=== PATIENT | female | born 1970 | race Caucasian/White ===

== ENCOUNTER 2016-08-05 03:28 | Inpatient (IN) | payer OTHER ==
--- NOTE | ~2016-08-05 | EKG ---
PATIENT: KALEB MIRANDA UNIT #: [id number] Ventricular Rate: 82 BPM Atrial Rate: 82 BPM P-R Interval: 142 ms QRS Duration: 86 ms Q-T Interval: 386 ms QTC Calculation(Bezet): 450 ms P [place]: 45 degrees Calculated R [place]: 9 degrees Calculated T [place]: 123 degrees Diagnosis Line: Normal sinus rhythm Diagnosis Line: Biatrial enlargement Diagnosis Line: T wave abnormality, consider lateral ischemia Diagnosis Line: Abnormal ECG Diagnosis Line: When compared with ECG of 05-AUG-2016 03:07, Diagnosis Line: Vent. rate has decreased BY 43 BPM Diagnosis Line: Confirmed by SID SCHULTZ MD ([id number]) on 08/15/2016 Diagnosis Line: 10:19:57 PM INTERPRETING MD: ANTOINE OLMEDO
--- NOTE | ~2016-08-05 | DS ---
Unit #: [id number] #: [id number] Patient: TRINITY MIRANDA [id number] [address] [address] [id number] I MR#: [id number] NAME: TRINITY MIRANDA ROOM: 548 Age: 46 Sex: F Admission Date: 08/05/2016 : 1970 Discharge Date: 08/09/2016 Attending Physician: Rhona Juarez M.D. Primary Care Physician: Tommie Nova M.D. DISCHARGE SUMMARY FINAL DIAGNOSES 1. Acute respiratory failure. 2. Acute systolic congestive heart failure with left ventricular ejection fraction of 20% to 25%. 3. Pneumonia. 4. Coronary artery disease with history of coronary artery bypass graft. 5. Lymphoma. 6. Nonsustained ventricular tachycardia. 7. Sinus bradycardia. 8. Hypotension. 9. Chronic obstructive pulmonary disease. 10. Anxiety disorder. 11. Nicotine abuse. 12. History of degenerative disk disease. 13. Obesity. CONSULTATIONS DONE DURING HOSPITALIZATION 1. Dr. Frost from cardiology service. 2. Dr. Seun Rooney from psychiatry service. 3. Dr. Bhatti from pulmonary service. DISCHARGE MEDICATIONS 1. Tylenol 650 mg q.6 p.r.n. 2. Lovenox 40 mg subcu q.24 hours. 3. Neurontin 300 mg t.i.d. 4. Seroquel 200 mg at bedtime. 5. Vistaril 50 mg t.i.d. 6. Xanax 0.75 mg t.i.d. p.r.n. 7. Lipitor 40 mg at bedtime. 8. Aspirin 81 mg q.24. 9. Protonix 40 mg daily. 10. Potassium 20 mEq b.i.d. 11. Dopamine drip as per cardiology. 12. Please note the patient is not on NEVAEH inhibitor/ARB for cardiomyopathy because of hypotension. 13. No beta-sofi because of hypotension and bradycardia. HOSPITAL COURSE Ms. Trinity Miranda is a 46-year-old female with multiple medical problems. Was admitted to the hospital with shortness of breath, which had been increasing for a few days prior to coming to the hospital. The patient does have history of severe anxiety and depression since she lost her son to drugs in 2014. The patient was admitted to telemetry unit at [facility], was diagnosed with pneumonia, panic attacks and Unit #: [id number] #: [id number] Patient: TRINITY MIRANDA heart failure. Dr. Bhatti was consulted. The patient was started on IV antibiotic as per his recommendation. CTA of the chest was done on 08/05/2016, which showed no aortic aneurysm. Suboptimal opacification of the aorta. No pulmonary embolism. Interval progression of probable atelectasis and scarring with increasing volume loss in the right lung. Subtle mild tree-in-bud opacities in the right lower lobe. Additional noncalcified nodular densities. A followup CT scan in 3-4 months for reassessment has been recommended. Dr. Bhatti has discontinued the antibiotic at this time. Acute on chronic congestive heart failure with a low ejection fraction. Dr. Frost was consulted. She was started on a dopamine drip for hypotension, bradycardia and congestive heart failure. The patient has nonsustained ventricular tachycardia and sinus bradycardia. The patient is being transferred to [facility] for AICD/pacemaker placement. I have discussed with Dr. Frost about the plan of care. As per Dr. Bhatti, there is no evidence of any active infection. DISCHARGE PHYSICAL EXAMINATION VITAL SIGNS ON DISCHARGE: Blood pressure is 108/72, respiratory rate 19, pulse 81, temperature 97.8. RESPIRATORY: Chest has decreased air entry in the bases; otherwise, normal. CVS: S1, S2 positive. Regular rhythm. ABDOMEN: Bowel sounds are positive. DISCHARGE INSTRUCTIONS 1. The patient is being discharged to [facility] as per Dr. Frost's recommendation. 2. The patient will be NPO after breakfast. 3. Medications as per med/rec. Dictated by... Yuridia Moore TD: 08/09/2016 09:16 JOB #: [id number] DISCHARGE SUMMARY Page 1 of 1 X Rhona Juarez MD DISCHARGE SUMMARY
--- NOTE | ~2016-08-05 | CT16 ---
[facility] A Service of [facility] RADIOLOGY TEXT RESULTS PATIENT: KALEB MIRANDA LOCATION: [facility] 548-01 : [birth year] UNIT #: [id number] AGE: [address]: Ashwin Rai MD SEX: F ORDER DR: [id number] [facility] [address] [place], [place] [address] [id number] I MR#: [id number] Acc #: [id number] NAME: KALEB MIRANDA : 1970 SEX: F STUDY DATE/TIME: 08/05/2016 4:54 UNIT: CEDOF ROOM: [id number] STUDY DESCRIPTION: CT Angio Chest for PE Attending Physician: Ashwin Rai M.D. Ordering Physician: Villa Casas M.D. Primary Care Physician: Tommie Nova M.D. MEDICAL IMAGING REPORT This report is preliminary unless electronic signature is present EXAM Chest CT, PE protocol with contrast, 08/05/2016 INDICATIONS Short of air chest pain symptoms of present today and have been present for a few days. History of lymphoma. TECHNIQUE This CT exam was performed with one or more of the following radiation dose reduction techniques: automatic exposure control, adjustment of mA and/or kV according to patient size, and iterative reconstruction. Contrast enhanced CT scan of the chest PE protocol was performed with 3-D reformats. COMPARISON 01/17/2014 FINDINGS IV bolus adequate. There is no evidence of acute pulmonary embolus in the central pulmonary arterial tree. Aorta demonstrates no aneurysm. The heart is enlarged. No pericardial effusion. Visualized thyroid unremarkable. No pericardial effusion or axillary adenopathy. No mediastinal adenopathy. Included upper abdomen demonstrates surgical absence of the gallbladder and probable physiologic dilatation of the extrahepatic common bile duct. Lungs demonstrate no effusion on the left. Left lung otherwise essentially clear with only minimal atelectasis or scarring. On the right, there is volume loss and peripheral pleural thickening involving the lower lobe and middle lobe on the right and to a lesser extent the [facility] A Service of [facility] RADIOLOGY TEXT RESULTS PATIENT: KALEB MIRANDA LOCATION: [facility] 548-01 : [birth year] UNIT #: [id number] AGE: [address]: Ashwin Rai MD SEX: F ORDER DR: upper lobe. There is minimal tree-in-bud infiltrate in the right lower lobe most characteristic of inflammatory or infectious process. These all measure on the order of 4-5 mm or less. Suggest imaging followup in 3-4 months for reassessment of decreased in size or resolution after appropriate therapy as these nodules are favored to be inflammatory or infection. Worsening volume loss in the right middle lobe. There is no suspicious bone lesion. IMPRESSION 1. No aortic aneurysm. Suboptimal opacification of the aorta for assessment of the presence or absence of dissection. 2. No PE 3. Interval progression of probable atelectasis and scarring with increasing volume loss in the right lung. 4. Subtle mild tree-in-bud opacities in the right lower lobe. Additional noncalcified nodular densities in the right lower lobe also favored to be inflammatory or infectious. Suggest follow up CT in 3-4 months for reassessment of potential decrease in size or resolution over time. 5. No significant pleural effusion. 6. Cardiomegaly. 7. Upper abdomen demonstrates no acute finding. The gallbladder is surgically absent. Dictated by... Aleksander Mccloud M.D. THIS IS AN ELECTRONICALLY VERIFIED REPORT Aleksander Mccloud M.D. at 08/05/2016 10:13 PM Isiah TD: 08/05/2016 15:30 JOB #: [id number] MEDICAL IMAGING REPORT Page 1 of 1 COPY
--- NOTE | ~2016-08-05 | CO ---
Unit #: [id number] #: [id number] Patient: TRINITY MIRANDA [id number] [facility] [address] [facility]. [place], [place] [address] [id number] I MR#: [id number] NAME: TRINITY MIRANDA ROOM: 548 Age: 46 Sex: F Admission Date: 08/05/2016 : 1970 Attending Physician: Rhona Juarez M.D. Primary Care Physician: Tommie Nova M.D. Consultation Date: 08/07/2016 CONSULTATION REPORT DISCUSSION Ms. Trinity Miranda is a 46-year-old female seen in room 548, bed 1 on August 07, 2016 at [facility]. Patient reported medication is helping her, decreasing anxiety. The patient reports some (1) slow down. Patient was sitting comfortably, dressed in hospital attire and eating breakfast. The patient denied any side effect from medication. Denied any suicidal or homicidal ideation. Patient reports getting better. Mood less irritable. No agitation. Complete review of systems is unremarkable. MENTAL STATUS EXAMINATION General appearance: The patient is dressed casually in hospital attire. Attention span and concentration fair. Speech: Regular rate, coherent. Oriented in time, place, and person. Mood and affect was sad, dysphoric, anxious. Thought process coherent. Thought content: The patient denied any thoughts of harming self or others. Recent and remote memory fair. Language: Able to name objects, repeat phrases. Fund of knowledge fair. Insight and judgment is fair to slightly impaired. DIAGNOSES PSYCHIATRIC: Bipolar mood disorder, not otherwise specified, F31.89. Cannabis abuse, moderate, F12.20. Amphetamine use disorder, severe, F15.20. ASSESSMENT AND PLAN 1. Supportive psychotherapy and psychoeducation provided to patient. 2. Educated about benefits and side effects of medication and course and prognosis of illness. 3. Advised to continue with current combination of medication and we will continue to monitor. If needed, consider further adjustment of medications. Dictated by... Seun Rooney M.D. Salazar TD: 08/08/2016 17:26 JOB #: [id number] Unit #: [id number] #: [id number] Patient: TRINITY MIRANDA CONSULTATION REPORT Page 1 of 1 X Seun Rooney MD CONSULTATION REPORT
--- NOTE | ~2016-08-05 | CR72 ---
[facility] A Service of [facility] RADIOLOGY TEXT RESULTS PATIENT: KALEB MIRANDA LOCATION: [facility] : [birth year] UNIT #: [id number] AGE: [address]: Ashwin Rai MD SEX: F ORDER DR: [id number] [facility] [address] [facility]. [place], [place] [address] [id number] I MR#: [id number] #: [id number] NAME: KALEB MIRANDA : 1970 SEX: F STUDY DATE/TIME: 08/05/2016 3:11 UNIT: CEDOF ROOM: 97215 STUDY DESCRIPTION: CR Chest Single View Portable Attending Physician: Ashwin Rai M.D. Ordering Physician: Villa Casas M.D. Primary Care Physician: Tommie Nova M.D. MEDICAL IMAGING REPORT This report is preliminary unless electronic signature is present EXAM Frontal chest, 07/26/2016. INDICATION Shortness of air and cough in a 46-year-old female with worsening symptoms for a month. Congestive heart failure, anxiety. History of lymphoma. TECHNIQUE Frontal chest compared with 01/23/2014. FINDINGS Heart is enlarged but stable status post median sternotomy. MediPort catheter or other large-bore central line from a left sided approach terminates at the cavoatrial junction. There is mild vascular congestion. Probable chronic pleural thickening on the right with increasing atelectasis or faint infiltrate with associated scarring in the mid and lower lung zone on the right. No new consolidation on the left. No pneumothorax. IMPRESSION 1. Cardiomegaly and mild volume overload with interstitial edema. 2. Chronic-appearing pleural thickening on the right with some increasing atelectasis or faint infiltrate associated with the area of pleural thickening. This could also represent interval progression of scarring. Correlate clinically with imaging followup to resolution after appropriate therapy. Dictated by... Aleksander Mccloud M.D. THIS IS AN ELECTRONICALLY VERIFIED REPORT [facility] A Service of [facility] RADIOLOGY TEXT RESULTS PATIENT: KALEB MIRANDA LOCATION: [facility] 548-01 : [birth year] UNIT #: [id number] AGE: [address]: Ashwin Rai MD SEX: F ORDER DR: Aleksander Mccloud M.D. at 08/05/2016 10:12 PM DARLINE/vivian TD: 08/05/2016 15:03 JOB #: [id number] MEDICAL IMAGING REPORT Page 1 of 1 COPY
--- NOTE | ~2016-08-05 | CO ---
Unit #: [id number] #: [id number] Patient: TRINITY MIRANDA [id number] [facility] [address]. [place], [place] [address] [id number] I MR#: [id number] NAME: TRINITY MIRANDA ROOM: 548 Age: 46 Sex: F Admission Date: 08/05/2016 : 1970 Attending Physician: Rhona Juarez M.D. Primary Care Physician: Tommie Nova M.D. Consultation Date: 08/09/2016 CONSULTATION REPORT REASON FOR CONSULTATION Followup. DISCUSSION Ms. Trinity Miranda is a 46-year-old female, seen on 07/20/2016 in room 548, bed 1, at [facility]. The patient reported that anxiety and depression is better, decrease in anxiety. Sleeping good. Tolerating medication fairly well. The patient denied any aggression, agitation, or any suicidal or homicidal ideation. REVIEW OF SYSTEMS Complete review of systems unremarkable. MENTAL STATUS EXAMINATION General; the patient is moderately obese, dressed casually, lying comfortably in bed. Attention span and concentration, fair. Speech, regular rate and coherent, but slow in volume and rate. Oriented in time, place, and person. Mood and affect were sad and dysphoric. Thought process was coherent, goal directed. Thought content, the patient denied any thoughts of harming self or others or any psychotic symptom. Recent and remote memory, poor. Language, able to name object and repeat phrases. Fund of knowledge, fair. Insight and judgment, fair to slightly impaired. DIAGNOSES Psychiatric: 1. Bipolar mood disorder, not otherwise specified, F31.89. 2. Cannabis abuse, moderate, F12.20. 3. Amphetamine use disorder, moderate, F15.20. ASSESSMENT/PLAN 1. Supportive psychotherapy and psychoeducation provided to the patient. 2. Educated about benefits and side effects of medication and course and prognosis of illness. 3. Advised to continue with current medication. If needed, consider further adjustment of medication. We will continue to follow. Please feel free to call if any questions, telephone #[phone]. Dictated by... Seun Rooney M.D. LATISHA/melissa Unit #: [id number] #: [id number] Patient: TRINITY MIRANDA TD: 08/11/2016 00:01 JOB #: [id number] CONSULTATION REPORT Page 1 of 1 X Seun Rooney MD CONSULTATION REPORT
--- NOTE | ~2016-08-05 | CO ---
Unit #: [id number] #: [id number] Patient: TRINITY MIRANDA [id number] [facility] [address] [facility]. [place], [place] [address] [id number] I MR#: [id number] NAME: TRINITY MIRANDA ROOM: 548 Age: 46 Sex: F Admission Date: 08/05/2016 : 1970 Attending Physician: Rhona Juarez M.D. Primary Care Physician: Tommie Nova M.D. Consultation Date: 08/06/2016 CONSULTATION REPORT REASON FOR CONSULTATION Severe anxiety, depression, panic attack. HISTORY OF PRESENT ILLNESS Ms. Trinity Miranda is a 46-year-old female, seen on 08/06/2016 in room 548 at [facility]. The patient has a history of bipolar disorder and anxiety disorder. The patient was last admitted at [facility] in 2012. The patient's urine drug screen was positive for benzodiazepine, amphetamine, and marijuana. The patient, however, denied any use of drugs or alcohol. The patient is currently reporting having severe anxiety, restlessness, agitation, mood lability, irritability. The patient currently denied any suicidal or homicidal ideation. Denied any psychotic symptom, but somewhat paranoid. PAST PSYCHIATRIC HISTORY Remarkable for history of previous admission at [facility] in 2012, currently receiving treatment from Dr. Iverson's office by a psychiatrist. The patient reports that her medication was recently increased, but she is not doing well. MEDICAL HISTORY Remarkable for history of lymphoma, depression, anxiety, degenerative disk disease, osteoarthritis, and obesity. MEDICATION HISTORY The patient is on Seroquel 400 mg daily, Xanax 2 mg b.i.d., Lortab. ALLERGIES No known drug allergies. FAMILY HISTORY AND SOCIAL HISTORY The patient has good support system. Lives with her spouse. Denied any use of drugs or alcohol, but the patient's urine drug screen was positive for amphetamine, benzos, and marijuana. REVIEW OF SYSTEMS Complete review of systems is remarkable for severe anxiety, restlessness. MENTAL STATUS EXAMINATION General appearance, the patient dressed casually in hospital attire, sitting comfortably in a propped up position, receiving oxygen through nasal cannula. Attention span and concentration, fair. Speech, rapid in rate and pressured. Oriented in time, place, and person. Mood and affect were labile, anxious, nervous. Thought process, coherent. Thought Unit #: [id number] #: [id number] Patient: TRINITY MIRANDA content, the patient denied any thoughts of harming self or others, but guarded. Recent and remote memory, fair. Language; able to name object, repeat phrases. Fund of knowledge, fair. Insight and judgment, fair to slightly impaired. DIAGNOSES Psychiatric: 1. Bipolar mood disorder, not otherwise specified, F31.89. 2. Cannabis abuse, moderate, F12.20. 3. Amphetamine use disorder, severe, F15.20. Secondary diagnosis: Deferred. Medical diagnosis: Please refer to H and P. Stressors: Psychosocial stressors. ASSESSMENT/PLAN 1. Supportive psychotherapy and psychoeducation provided to the patient. 2. Educated about benefits and side effects of medication and course and prognosis of illness. 3. Advised to discontinue Wellbutrin and Xanax, and recommending to lower the dosage of Seroquel to 200 mg at bedtime. Advised Neurontin 300 mg t.i.d. to control severe anxiety and Vistaril 50 mg t.i.d. one dose now. We will continue to follow. Please feel free to call if any questions, telephone #[phone]. Dictated by... Yuridia Olguin/melissa TD: 08/07/2016 08:18 JOB #: [id number] CONSULTATION REPORT Page 1 of 1 X Seun Rooney MD X CONSULTATION REPORT
--- NOTE | ~2016-08-05 | HP ---
Unit #: [id number] #: [id number] Patient: TRINITY MIRANDA [id number] [address] [address] [id number] I MR#: [id number] NAME: TRINITY MIRANDA ROOM: 548 Age: 46 Sex: F Admission Date: 08/05/2016 : 1970 Attending Physician: Rhona Juarez M.D. Primary Care Physician: Tommie Nova M.D. HISTORY AND PHYSICAL ADMISSION DIAGNOSES 1. Pneumonia. 2. Anxiety/depression. 3. History of coronary artery disease. 4. History of valvular heart disease. 5. Acute on chronic systolic heart failure. 6. Obesity, questionable obstructive sleep apnea. 7. History of lymphoma. 8. Continues tobacco use. 9. Questionable chronic obstructive pulmonary disease. HISTORY OF PRESENT ILLNESS Ms. Trinity Miranda is a 46-year-old, obese, female, patient of Dr. Nova, who comes to the emergency room with the complaints of increasing shortness of air and dyspnea along with some panic-type attacks which mostly happens at night. She states that she has got severe anxiety/depression since she lost her son to drugs in 2014. She gets really tearful easily. Complains of shortness of air, dyspnea with some nonproductive cough. She has some subjective fevers with some diaphoresis. Denies any chest pain, denies any headache/dizziness, denies any nausea, vomiting, diarrhea or abdominal pain. REVIEW OF SYSTEMS Twelve point review of systems is essentially basically negative except as above. PAST MEDICAL HISTORY Significant for: 1. History of coronary artery disease. 2. Hypertension. 3. Valvular heart disease. 4. Systolic heart failure. 5. Obesity. 6. Lymphoma, in remission now. 7. Degenerative disc disease. 8. Depression/anxiety/panic attacks. PAST SURGICAL HISTORY 1. Significant for CABG. 2. Significant PCI with stents. 3. Also significant for video-assisted thoracotomy on the right with biopsy. 4. Also significant for cholecystectomy. 5. Tubal ligation. Unit #: [id number] #: [id number] Patient: TRINITY MIRANDA 6. Bilateral hip replacement. 7. Port insertion for the chemotherapy. HOME MEDICATIONS Include: 1. Seroquel. 2. Wellbutrin. 3. Xanax. ALLERGIES No known drug allergies. SOCIAL HISTORY Continues to smoke. Denies any alcohol or illicit drug use. FAMILY HISTORY Unremarkable. PHYSICAL EXAMINATION GENERAL: The patient is a 46-year-old, obese female, in no acute distress. VITAL SIGNS: Blood pressure 109/65, heart rate 89, respirations 18, temperature 98.3. HEENT: Head is atraumatic. Pupils equal, round and reactive to light and accommodation. Extraocular muscles intact. Oropharynx clean. NECK: Supple. No masses, no JVD, no bruits. CHEST: Diminished bilaterally. CARDIOVASCULAR: S1, S2, no murmurs. ABDOMEN: Obese, soft, nontender, nondistended. EXTREMITIES: Lower extremities without any significant cyanosis, clubbing or edema. NEUROLOGICAL: The patient is grossly intact. No focal deficits. PSYCH: Exam is significant for anxiety. DIAGNOSTIC STUDIES IMAGING: Chest x-ray and CT angio significant for scarring, pneumonia. Negative for PE. LABORATORY: Chemistry unremarkable. White count 15,000, H and H 13.6 and 43.2. ASSESSMENT AND PLAN 1. Pneumonia: Continue Levaquin. 2. Anxiety/depression along with the panic attacks: Will get psychiatry evaluation. 3. History of coronary artery disease, status post coronary artery bypass graft, status post percutaneous coronary intervention: Continue per cardiology. 4. History of valvular heart disease and acute on chronic systolic heart failure, status post evaluation per cardiology: Started on Coreg. 5. History of lymphoma, in remission: White count elevated. Will check the procalcitonin level. Consider hematology evaluation. 6. Obesity, questionable obstructive sleep apnea, questionable chronic obstructive pulmonary disease: Will get pulmonary eval. 7. Continued tobacco use: Counseled about the importance of quitting. 8. GI and DVT prophylaxis with PPI and Lovenox. Unit #: [id number] #: [id number] Patient: TRINITY MIRANDA Dictated by Rashard Savage M.D. OC/df TD: 08/07/2016 06:09 JOB #: [id number] HISTORY AND PHYSICAL Page 1 of 1 X Rashard Savage MD X HISTORY AND PHYSICAL
--- NOTE | ~2016-08-05 | CO ---
Unit #: [id number] #: [id number] Patient: KALEB MIRANDA [id number] [facility] [address] [place], [place] [address] [id number] MR#: [id number] NAME: KALEB MIRANDA ROOM: 548 Age: 46 Sex: F Admission Date: 08/05/2016 : 1970 Attending Physician: Rhona Juarez M.D. Primary Care Physician: Tommie Nova M.D. CONSULTATION REPORT REASON FOR CONSULTATION Heart failure. HISTORY OF PRESENT ILLNESS This is a 46-year-old white female, who presented to the emergency room with a complaint of dyspnea. The patient states she has had worsening dyspnea and lower extremity edema over the past few months. She has been drinking a lot of fluids and not taking any of her medications. She was seen in 12/2015, where she was started on Entresto and failed to follow up with Cardiology. She reports 3-pillow orthopnea and paroxysmal nocturnal dyspnea. She developed pain under both breast that she feared that her "cancer" has returned. She has been anxious and crying at times during the interview. She states she has been depressed over the loss of her son, who in 2014. In the emergency room, BNP elevated at 3062. Troponin is negative. She denies chest pain. She is known to have coronary artery disease, where she underwent coronary artery bypass graft x2 in 2013. Last echocardiogram in 2015 shows severe left ventricular systolic dysfunction with an ejection fraction was 20% to 25%. She has a valvular heart disease with lnczhgiq-bj-oykckf aortic regurgitation and severe mitral regurgitation. PAST MEDICAL HISTORY 1. Xvk-DT-jxextsdtc myocardial infarction on 01/19/2014, status post cardiac catheterization with left main 80% distal. There was mild diffuse irregularities in the circumflex and right coronary artery. Tjtnvdja-nq-ykxiyu mitral regurgitation with an ejection fraction of 45%. 2. Coronary artery bypass graft x2 in 12/[address] Tam at [facility] with KIM to the LAD and saphenous vein graft to the ramus intermedius branch. 3. 2D echocardiogram on 12/16/2015 shows an ejection fraction of 20% to 25% with right ventricle systolic pressure of 50 mmHg. Kmicjtri-sv-ugeuro aortic regurgitation and severe mitral regurgitation. 4. Degenerative disk disease. 5. Osteoarthritis. 6. Lymphoma in 2008, status post chemotherapy. 7. Anxiety. 8. Active smoker. PAST SURGICAL HISTORY 1. Laparoscopic cholecystectomy. 2. Tubal ligation. 3. Bilateral hip replacement. Unit #: [id number] #: [id number] Patient: KALEB MIRANDA 4. Mediport placement. 5. Video-assisted thoracoscopy with biopsy. SOCIAL HISTORY The patient is disabled. She smokes at least a pack of cigarettes a day. She denies illicit drug or alcohol use. FAMILY HISTORY Negative for coronary artery disease. Both parents from cancer. ALLERGIES No known drug allergies. HOME MEDICATIONS Seroquel 400 mg q.h.s., Wellbutrin 100 mg daily, Xanax 0.75 mg t.i.d. p.r.n. REVIEW OF SYSTEMS CONSTITUTIONAL: Positive for weakness and fatigue. Has no weight gain or weight loss. HEENT: No headache, hearing or vision changes. Negative for dizziness. CARDIOVASCULAR: Negative for chest pain. Unaware of palpitations. Positive for paroxysmal nocturnal dyspnea with 3-pillow orthopnea. RESPIRATORY: Reports dyspnea at rest. No cough or hemoptysis. GASTROINTESTINAL: No abdominal pain, nausea, or vomiting. Has increase in abdominal girth. EXTREMITIES: Positive for lower extremity edema. PHYSICAL EXAMINATION VITAL SIGNS: Blood pressure 139/95, heart rate 115, temperature 98.3. BMI 33. GENERAL: This is a mildly obese 46-year-old young white female, who appears older than her stated age. She is in no acute respiratory distress. NEUROLOGIC: She is awake, alert, and oriented, but noted that she is very anxious. NECK: Trachea is midline. No thyromegaly or lymphadenopathy. No jugular venous distention. HEART: S1, S2. Heart sounds are normal with soft systolic murmur heard best at the apex. There is a grade 2/3 systolic murmur heard best at the right sternal border. ABDOMEN: Soft and obese with bowel sounds are present. No organomegaly. EXTREMITIES: With 1+ edema. DIAGNOSTIC STUDIES LABORATORY RESULTS: Hemoglobin 13.8, hematocrit 43.2, platelet count 247, white count 15.4. Sodium 141, potassium 3.9, BUN 20, creatinine 0.8, glucose 101. BNP 3062. Troponin less than 0.05. IMAGING STUDIES: Chest x-ray noted for congestive heart failure. Has bibasilar infiltrates. CARDIOVASCULAR STUDIES: EKG; sinus tachycardia with a rate of 125 beats per minute with biatrial enlargement. IMPRESSION 1. Bilateral pneumonia. 2. Acute on chronic systolic heart failure with reduced ejection fraction Unit #: [id number] #: [id number] Patient: HOUSE,KALEB of 20% to 25%. 3. Valvular heart disease with xdfpbaan-uc-xreduv aortic regurgitation and severe mitral regurgitation. 4. History of coronary artery bypass graft x2 in 2013. 5. History of lymphoma, status post chemotherapy. 6. Anxiety. 7. Nicotine abuse. 8. Noncompliance. PLAN 1. Cardiology was consulted for congestive heart failure. The patient has not been compliant in her fluid restriction nor with her medication regimen. 2. We will diurese the patient with IV diuretics. 3. Restart heart failure medications and optimize as appropriate. 4. Check echocardiogram for worsening valvular heart disease. 5. On antibiotics for pneumonia. 6. Encourage the patient to stop smoking. 7. Trend cardiac troponin and enzymes. 8. Further recommendations to follow. Thank you for allowing us to assist in this patient's care. Dictated by... Cale Murphy A.P.R.N. for Yuridia lGez/melissa TD: 08/08/2016 00:41 JOB #: [id number] CONSULTATION REPORT Page 1 of 1 X Cale Murphy APRN X CONSULTATION REPORT
--- NOTE | ~2016-08-05 | CO ---
Unit #: [id number] #: [id number] Patient: TRINITY MIRANDA [id number] [facility] [address] [place], [place] [address] [id number] MR#: [id number] NAME: TRINITY MIRANDA ROOM: 548 Age: 46 Sex: F Admission Date: 08/05/2016 : 1970 Attending Physician: Rhona Juarez M.D. Primary Care Physician: Tommie Nova M.D. Consultation Date: 08/08/2016 CONSULTATION REPORT REASON FOR CONSULTATION Followup. DISCUSSION Ms. Trinity Miranda is a 46-year-old female, seen on 08/08/2016 in room 548 at [facility]. The patient is reporting that her depression and anxiety are better. Able to rest at night. The patient is still on dopamine drip. The patient was compliant, cooperative, redirectable, able to maintain safe behavior. No agitation or aggression. REVIEW OF SYSTEMS Complete review of systems is unremarkable. MENTAL STATUS EXAMINATION General appearance; the patient dressed casually, dressed in hospital attire, lying comfortably in bed, receiving IV and the patient has an IV site. Attention span and concentration, fair. Speech, slow and regular rate. Oriented in time, place, and person. Mood and affect were labile, anxious, but made good eye contact. Thought process was coherent and goal directed. Thought content, the patient denied any thoughts of harming self or others, but somewhat guarded. Recent and remote memory, fair. Language, able to name object, repeat phrases. Fund of knowledge, fair. Insight and judgment, fair to slightly impaired. DIAGNOSES Psychiatric: 1. Bipolar mood disorder, not otherwise specified, F31.89. 2. Cannabis abuse, moderate, F12.20. 3. Amphetamine use disorder, severe, F15.20. ASSESSMENT/PLAN 1. Supportive psychotherapy and psychoeducation provided to the patient. 2. Educated about benefits and side effects of medication and course and prognosis of illness. 3. Continue with current medication. If needed, consider further adjustment of medication. Please feel free to call if any questions, telephone #[phone]. Dictated by... Seun Rooney M.D. LATISHA/melissa Unit #: [id number] #: [id number] Patient: TRINITY MIRANDA TD: 08/09/2016 03:40 JOB #: [id number] CONSULTATION REPORT Page 1 of 1 X Seun Rooney MD CONSULTATION REPORT
--- NOTE | ~2016-08-05 | EKG ---
PATIENT: KALEB MIRANDA UNIT #: [id number] Ventricular Rate: 125 BPM Atrial Rate: 125 BPM P-R Interval: 130 ms QRS Duration: 86 ms Q-T Interval: 312 ms QTC Calculation(Bezet): 450 ms P Parkman: 49 degrees Calculated R Parkman: 8 degrees Calculated T Parkman: 112 degrees Diagnosis Line: Sinus tachycardia Diagnosis Line: Biatrial enlargement Diagnosis Line: ST and T wave abnormality, consider lateral ischemia Diagnosis Line: Abnormal ECG Diagnosis Line: When compared with ECG of 19-JAN-2014 05:56, Diagnosis Line: ST no longer depressed in Inferior leads Diagnosis Line: ST no longer depressed in Anterior leads Diagnosis Line: T wave inversion no longer evident in Inferior Diagnosis Line: leads Diagnosis Line: T wave inversion less evident in Anterior leads Diagnosis Line: Confirmed by SID SCHULTZ MD ([id number]) on 08/06/2016 Diagnosis Line: 7:24:54 AM INTERPRETING MD: ANTOINE OLMEDO
[~2016-08-05 03:28] MED LIST: ALPRAZOLAM PO; ANEXSIA 7.5/3251 TA1 PO; AUGMENTIN875 M1 PO; DICLOFENAC PO; DICLOFENAC SODIUM PO; EFFEXOR PO; FLEXERIL10 MG PO; HYDROCODON-ACE1 EAC4; INVANZ; LORTAB 10-3251 EACH PO; LORTAB 5/500 TA1 TA2 PO; LORTAB 7.5-5001 TAB PO; MOBIC; PERCOCET5/325 PO; PERCOCET7.5 PO; PREDNISONE PO; PREDNISONE10 MG PO; PROZAC PO; SEROQUEL300 MG PO; SEROQUEL400 MG PO; SEROQUEL50 MG PO; STERAPRED5 MG/DOSE1 PO; VANCOCIN HCL250 MG IV; VICODIN 5/1 TAB 5/50 PO; VICODIN ES 7.51 EACH PO; VOLTAREN50 MG PO; VOLTAREN75 MG PO; XANAX2 MG PO; ZOFRAN ODT4 MG PO
[2016-08-05 03:31] LABS: POC - CKMB 2.4 ng/mL (0.0-7.9); POC - TROPONIN <0.05 ng/mL (<=0.05)
[2016-08-05 03:33] LABS: BASOPHIL# 0.2 X10e3 (0-0.3); BASOPHIL% 1.3 % (0-2.5); EOSINOPHIL# 0.1 X10e3 (0-0.7); EOSINOPHIL% 0.8 % (0.0-7.0); HEMATOCRIT 43.2 % (35.0-45.0); HEMOGLOBIN 13.8 gm/dL (12.0-16.0); LYMPHOCYTE# 4.2 X10e3 (1.0-3.5); LYMPHOCYTE% 27.6 % (17.0-45.0); MEAN CELL VOLUME 93.8 FL (83-96); MEAN CORPUSCULAR HEMOGLOBIN 29.9 PG (28-34); MEAN CORPUSCULAR HGB CONC 31.9 g/dL (30-36); MEAN PLATELET VOLUME 8.9 FL (6.5-11.5); MONOCYTE# 1.5 X10e3 (0-1.0); MONOCYTE% 9.6 % (3.0-12.0); NEUTROPHIL# 9.3 X10e3 (1.5-7.1); NEUTROPHIL% 60.7 % (40-75); PLATELET COUNT 247 X10e3 (140-420); RED BLOOD COUNT 4.61 X10e (3.90-5.30); RED CELL DISTRIBUTION WIDTH 15.2 % (11.0-15.5); WHITE BLOOD COUNT 15.4 X10e3 (4.0-10.5)
[2016-08-05 03:34] LABS: DIFF IND YES
[2016-08-05 03:54] LABS: PLATELET ESTIMATE NORMAL (NORMAL)
[2016-08-05 03:55] LABS: ANISOCYTOSIS MOD
[2016-08-05 03:56] LABS: ALBUMIN SERUM 4.1 g/dL (3.5-5.0); BILIRUBIN, DIRECT 0.3 mg/dL (0.0-0.2); BILIRUBIN,INDIRECT 0.6 mg/dL (0.0-0.9); BILIRUBIN,TOTAL 0.9 mg/dL (0.2-2.0); BUN/CREATININE RATIO 26.25; CALCIUM SERUM 9.3 mg/dL (8.4-10.2); CREATININE SERUM 0.8 mg/dL (0.6-1.4); GLOM FILT RATE Estimated 88.5 mL/min (>60); POTASSIUM 3.6 mmol/L (3.5-5.1); PROTEIN TOTAL SERUM 8.1 g/dL (6.0-8.3)
[2016-08-05 04:09] LABS: AMPHETAMINE POS (NEG); BARBITURATES NEG (NEG); BENZODIAZEPINES POS (NEG); COCAINE NEG (NEG); MARIJUANA POS (NEG); OPIATES NEG (NEG); TRICYCLIC ANTIDEPRESSANTS NEG (NEG); U METHADONE NEG (NEG)
[2016-08-05 06:00] LABS: POC - TROPONIN <0.05 ng/mL (<=0.05)
[2016-08-05] MEDS ORDERED: WELLBUTRIN100 MG PO (06:05)
[2016-08-05] MEDS ORDERED: ALPRAZOLAM PO (06:08)
[2016-08-05 09:28] LABS: CREATININE SERUM 0.8 mg/dL (0.6-1.4); GLOM FILT RATE Estimated 88.5 mL/min (>60); POTASSIUM 3.9 mmol/L (3.5-5.1)
[2016-08-06 06:06] LABS: CALCIUM SERUM 8.5 mg/dL (8.4-10.2); GLOM FILT RATE Estimated 67.5 mL/min (>60); MAGNESIUM 1.8 mg/dL (1.6-3.0); POTASSIUM 4.4 mmol/L (3.5-5.1)
[2016-08-07 04:33] LABS: ARTERIAL BLOOD GAS PCO2 41.2 mmHg (35.0-45.0); ARTERIAL BLOOD GAS pH 7.427 (7.350-7.450)
[2016-08-07 04:34] LABS: ARTERIAL BLD GAS O2 SATURATION 91.4 % (90.0-100.0); ARTERIAL BLOOD GAS ALLEN TEST NORMAL; ARTERIAL BLOOD GAS ART SITE LEFT RADIAL; ARTERIAL BLOOD GAS HCO3 27.1 mmol/L; ARTERIAL BLOOD GAS PO2 60.4 mmHg (80.0-100); ARTERIAL DRAW? YES
[2016-08-07 06:15] LABS: BASOPHIL# 0.1 X10e3 (0-0.3); BASOPHIL% 1.1 % (0-2.5); EOSINOPHIL# 0.2 X10e3 (0-0.7); EOSINOPHIL% 2.2 % (0.0-7.0); HEMATOCRIT 38.9 % (35.0-45.0); HEMOGLOBIN 12.4 gm/dL (12.0-16.0); LYMPHOCYTE# 2.5 X10e3 (1.0-3.5); LYMPHOCYTE% 32.7 % (17.0-45.0); MEAN CELL VOLUME 92.4 FL (83-96); MEAN CORPUSCULAR HEMOGLOBIN 29.4 PG (28-34); MEAN CORPUSCULAR HGB CONC 31.8 g/dL (30-36); MEAN PLATELET VOLUME 8.8 FL (6.5-11.5); MONOCYTE# 0.8 X10e3 (0-1.0); MONOCYTE% 10.8 % (3.0-12.0); NEUTROPHIL# 4.1 X10e3 (1.5-7.1); NEUTROPHIL% 53.2 % (40-75); PLATELET COUNT 154 X10e3 (140-420); RED BLOOD COUNT 4.21 X10e (3.90-5.30); RED CELL DISTRIBUTION WIDTH 14.8 % (11.0-15.5); WHITE BLOOD COUNT 7.7 X10e3 (4.0-10.5)
[2016-08-07 06:20] LABS: DIFF IND NO
[2016-08-07 07:14] LABS: ALBUMIN SERUM 2.8 g/dL (3.5-5.0); BILIRUBIN,TOTAL 0.5 mg/dL (0.2-2.0); CALCIUM SERUM 8.6 mg/dL (8.4-10.2); GLOM FILT RATE Estimated 67.5 mL/min (>60); PROTEIN TOTAL SERUM 5.8 g/dL (6.0-8.3)
[2016-08-08 06:48] LABS: CALCIUM SERUM 9.1 mg/dL (8.4-10.2); GLOM FILT RATE Estimated 67.5 mL/min (>60); POTASSIUM 4.8 mmol/L (3.5-5.1)
== END 2016-08-09 17:10 | DRG 291 ==
LOC: CED 03:28 → CEDOF 05:50 → C5B 19:41
PROVIDERS: Emergency Medicine; Hospitalist; Internal Medicine; Nurse Practitioner; Physician Assistant Medical
PROC: B32TYZZ Computerized Tomography (CT Scan) of Left Pulmonary Artery using Other Contrast (ICD-10-PCS; principal; 2016-08-05)
PROC: B32SYZZ Computerized Tomography (CT Scan) of Right Pulmonary Artery using Other Contrast (ICD-10-PCS; 2016-08-05)
PROC: B24BYZZ Ultrasonography of Heart with Aorta using Other Contrast (ICD-10-PCS; 2016-08-05)
DX: I11.0 Hypertensive heart disease with heart failure (principal); J18.9 Pneumonia, unspecified organism; J96.01 Acute respiratory failure with hypoxia; I47.2 Ventricular tachycardia; F15.20 Other stimulant dependence, uncomplicated; I27.2 Other secondary pulmonary hypertension; F31.89 Other bipolar disorder; I50.23 Acute on chronic systolic (congestive) heart failure; F41.9 Anxiety disorder, unspecified; E66.9 Obesity, unspecified; G47.33 Obstructive sleep apnea (adult) (pediatric); F17.210 Nicotine dependence, cigarettes, uncomplicated; J44.9 Chronic obstructive pulmonary disease, unspecified; Z85.72 Personal history of non-Hodgkin lymphomas; I25.10 Atherosclerotic heart disease of native coronary artery without angina pectoris; F41.0 Panic disorder [episodic paroxysmal anxiety]; Z95.1 Presence of aortocoronary bypass graft; Z90.49 Acquired absence of other specified parts of digestive tract; Z98.51 Tubal ligation status; Z96.643 Presence of artificial hip joint, bilateral; I25.2 Old myocardial infarction; I08.0 Rheumatic disorders of both mitral and aortic valves; M19.90 Unspecified osteoarthritis, unspecified site; Z91.19 Patient's noncompliance with other medical treatment and regimen; F12.20 Cannabis dependence, uncomplicated; I42.9 Cardiomyopathy, unspecified; I95.2 Hypotension due to drugs; Z68.33 Body mass index [BMI] 33.0-33.9, adult
CPT/HCPCS: 36415; 36600; 71010; 71275; 80048; 80053; 80061; 80076; 80307; 82308; 82553; 82803; 83735; 83880; 84443; 84484; 85025; 87040; 87205; 87449; 87899; 93005; 93306; 94660; 94760; 99285; G0480; J1265; J1650; J1940; J1956; J3475; Q9967